=== PATIENT | male | born 1975 | race Caucasian/White ===

== ENCOUNTER 2016-04-18 09:03 | Outpatient (CLI) ==
[2013-09-09 00:44] VITALS: BMI 30.2
[2016-04-18 09:56] LABS: CHOL/HDL RATIO 5.3 (4.5-6.4)
== END 2016-04-18 09:04 | disposition home or self-care (01) ==
LOC: LAB 09:03
PROVIDERS: ATTEND Emergency Medicine
DX: E78.5 Hyperlipidemia, unspecified (principal); I10 Essential (primary) hypertension
CPT/HCPCS: 36415; 80061; 83036

== ENCOUNTER 2016-12-10 12:41 | Outpatient (CLI) | payer OTHER ==
[2013-09-09 00:44] VITALS: BMI 30.2
[2016-12-10 12:46] LABS: BASOPHILS % (AUTO) 0.4 % (0.0-3.0); EOSINOPHILS # (AUTO) 0.1 K/ul (0.0-0.7); EOSINOPHILS % (AUTO) 1.5 % (0.0-7.0); HEMATOCRIT 46.7 % (42.0-52.0); HEMOGLOBIN 16.1 g/dl (14.0-18.0); IMMATURE GRANULOCYTE % (AUTO) 0.3 % (0.0-5.0); LYMPHOCYTES # (AUTO) 2.4 K/uL (0.60-3.4); LYMPHOCYTES % (AUTO) 30.7 (10.0-50.0); MEAN CORPUSCULAR HEMOGLOBIN 29.2 pg (27.0-31.0); MEAN CORPUSCULAR HGB CONC 34.5 (31.8-35.4); MEAN CORPUSCULAR VOLUME 84.6 fl (80.0-94.0); MONOCYTES # (AUTO) 0.6 K/uL (0.4-2.0); MONOCYTES % (AUTO) 7.8 (0-10); NEUTROPHILS # (AUTO) 4.6 K/ul (2.0-6.9); NEUTROPHILS % (AUTO) 59.3; PLATELET COUNT 263 10^3/uL (140-440); RED BLOOD COUNT 5.52 10^6/ul (4.70-6.10); WHITE BLOOD COUNT 7.82 K/ul (4.2-10.2)
[2016-12-10 13:21] LABS: ALBUMIN/GLOBULIN RATIO 1.25; ANION GAP 12.4; BILIRUBIN,TOTAL 0.38 mg/dL (0.00-1.20); BUN/CREATININE RATIO 13.26; CALCIUM 9.9 mg/dL (8.2-10.2); CHOL/HDL RATIO 6.1 (4.5-6.4); CREATININE 0.98 mg/dL (0.60-1.10); POTASSIUM 4.4 mmol/L (3.5-5.1); TOTAL PROTEIN 7.2 g/dL (6.4-8.2)
== END 2016-12-10 12:42 | disposition home or self-care (01) ==
LOC: LAB 12:41
PROVIDERS: ATTEND Emergency Medicine
DX: F41.1 Generalized anxiety disorder (principal); I10 Essential (primary) hypertension; F32.9 Major depressive disorder, single episode, unspecified; E78.5 Hyperlipidemia, unspecified
CPT/HCPCS: 36415; 80053; 80061; 84443; 85025

== ENCOUNTER 2017-04-10 09:31 | Outpatient (CLI) | payer OTHER ==
[2013-09-09 00:44] VITALS: BMI 30.2
== END 2017-04-10 09:32 | disposition home or self-care (01) ==
LOC: RHC-LAB 09:31
PROVIDERS: ATTEND Emergency Medicine
DX: E78.5 Hyperlipidemia, unspecified (principal); I10 Essential (primary) hypertension
CPT/HCPCS: 36415; 80053; 80061; 84443; 85025

== ENCOUNTER 2017-12-17 10:32 | Outpatient (CLI) ==
[2013-09-09 00:44] VITALS: BMI 30.2
== END 2017-12-17 10:33 | disposition home or self-care (01) ==
LOC: RHC-LAB 10:32
PROVIDERS: ATTEND Nurse Practitioner Family
DX: F13.20 Sedative, hypnotic or anxiolytic dependence, uncomplicated (principal); I10 Essential (primary) hypertension; E78.5 Hyperlipidemia, unspecified
CPT/HCPCS: 36415; 80053; 80061; 85025

== ENCOUNTER 2018-10-03 18:11 | Emergency (ER) ==
[2018-10-03 18:28] VITALS: BP 125/76; TEMP 97.6; BMI 26.0
== END 2018-10-03 19:47 | disposition left against medical advice (07) ==
LOC: ED 18:11
DX: R11.0 Nausea (principal); F41.9 Anxiety disorder, unspecified